=== PATIENT | female | born 1935 | race Caucasian/White ===

== ENCOUNTER 2016-06-23 17:35 | Inpatient (IN) | payer MEDICARE, OTHER ==
[~2016-06-23] VITALS: Ht 165.1 cm; Wt 62.0 kg
--- NOTE | ~2016-06-23 | FD ---
ADMIT: 06/23/2016 RM/LOC: 512 [facility] MR#: [id number] [address] [id number] ELIAS COURTNEY [address] [place] [address] Final Diagnosis SEX: F AGE: 81 : 1935 ADMISSION DATE: 06/23/2016 DISCHARGE DATE: 06/25/2016 ADMITTING DIAGNOSIS: As per history and physical. FINAL DIAGNOSES: 1. Severe abdominal pain, resolved. 2. Ileus, resolved. 3. Dehydration, resolved. 4. Type 2 diabetes. 5. Collagenous colitis. 6. Chronic gastroesophageal reflux disease. 7. Constipation. 8. Hypothyroidism. 9. Generalized osteoarthritis. 10.Restless legs syndrome. 11.Chronic insomnia. COMPLICATIONS: None. OPERATIONS: None. Lenard Lao MD/ sindy JOB #: [id number] CC: Lenard Lao MD, Attending Physician Lenard Lao MD, Family Physician
[2016-06-27] MEDS ORDERED: UCERIS9 MG PO (07:35)
[2016-06-27] MEDS ORDERED: SYNTHROID50 MCG PO (07:35)
[2016-06-27] MEDS ORDERED: XANAX DPS0.25 MG PO (07:36)
[2016-06-27] MEDS ORDERED: REQUIP DPS0.5 MG PO (07:36)
[2016-06-27] MEDS ORDERED: DESYREL DPS100 MG PO (07:36)
[2016-06-27] MEDS ORDERED: MELATONIN10 M2 PO (07:36)
[2016-06-27] MEDS ORDERED: CATAPLEX B PO (07:37)
[2016-06-27] MEDS ORDERED: VITAMIN D-32000 UNI1 PO (07:37)
[2016-06-27] MEDS ORDERED: ZYRTEC DPS10 MG PO (07:37)
[2016-06-27] MEDS ORDERED: TYLENOL DPS325 MG PO (07:38)
[2016-06-27] MEDS ORDERED: MILK OF MAGNESI10 ML PO (07:38)
--- NOTE | 2016-06-28 12:53 | HP ---
ADMIT: 06/23/2016 RM/LOC: 512 [facility] MR#: [id number] [address] [id number] ELIAS COURTNEY [address] [place] [address] History and Physical SEX: F AGE: 81 : 1935 DATE OF SERVICE: CHIEF COMPLAINT: Severe abdominal pain with persistent nausea. CLINICAL HISTORY: The patient is an 81-year-old white female, admitted to [facility] after being seen at our office on the afternoon of 06/23/2016, complaining of severe mid abdominal pain with marked cramping and protracted nausea. She was having no vomiting but was unable to eat or drink because of the nausea. The patient had had the onset of her abdominal pain on Tuesday evening, 06/21/2016. Since that time, her pain had gotten progressively worse. She has been unable to maintain adequate hydration or eat or drink anything. Any oral intake markedly aggravated her abdominal cramping. Over the past 24 hours, she has been unable to eat or drink anything. The patient notes a past history of chronic diarrhea and was recently diagnosed in March of 2016 with collagenous colitis. In the past, she used to have 6-10 stools a day that were watery due to her colitis. Recently, she was started on Uceris 9 mg extended release tablet. She was prescribed this by her economics lecturer, Dr. Monae. Since starting on the Uceris approximately 6 weeks ago, her diarrhea has subsided and she now has usually one or two formed or semi-formed stools per day. However, she notes since the onset of her severe abdominal pain on Tuesday evening, she has had no bowel movement and has noticed that she has not been able to pass any gas either. She does note a prior history of right hemicolectomy for colon cancer. She has had two recent colonoscopies, one by Dr. Syed in January of 2016 and most recently in March of 2016, at which time biopsies confirmed collagenous colitis. When seen at our office, her abdomen was extremely tender. She had abdominal distention and was very tympanic. Bowel sounds were hypoactive. She had some voluntary guarding in both lower quadrants with no true peritoneal signs. She was noted to be significantly dehydrated. Because of her severe abdominal pain, protracted nausea, and subsequent dehydration, it was felt best to admit at this time. PAST MEDICAL HISTORY: Recent hospitalizations; she has had no recent hospitalizations. Her prior colonoscopies were done as an outpatient. As noted, she had one in January of 2016 and most recently in March of 2016. 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 She notes that it has been greater than 10 years and she has had no evidence of recurrent disease. She notes that she did not have to take chemotherapy. She was apparently surgically cured by her right hemicolectomy. Her only other surgical procedure was a tonsillectomy as a young adult and an appendectomy as a young adult. No other surgical procedures. No other recent hospitalizations. CURRENT MEDICATIONS: Include: 1. Xanax 0.25 mg one twice a day. 2. Levothyroxine 50 mcg daily. 3. Requip 0.5 mg, one at bedtime for restless legs syndrome. 4. Uceris ER 9 mg one daily. 5. Trazodone 100 mg, one or two tablets at bedtime for insomnia. ADMIT: 06/23/2016 RM/LOC: 512 [facility] MR#: [id number] [address] [place] [id number] ELIAS COURTNEY [address] [place] [id number] History and Physical SEX: F AGE: 81 : 1935 6. [place] 5/325, one or two tablets at bedtime for chronic arthritic pain. 7. Melatonin 10 mg two tablets at bedtime for insomnia. 8. Vitamin D3, 2000 units twice a week. 9. Cataplex B supplement 2 tablets twice a day. 10.Zyrtec 10 mg once daily for allergies. ALLERGIES: NO KNOWN DRUG ALLERGIES. MEDICAL ILLNESSES: Her medical illnesses include: 1. Chronic gastroesophageal reflux disease. 2. Collagenous colitis. 3. Hypothyroidism. 4. Type 2 diabetes, diet controlled. 5. Past history of colon cancer, status post right hemicolectomy. SOCIAL HISTORY: The patient is . She is retired. She lives with her . She is a lifelong nonsmoker. She does not consume alcoholic beverages. No history of illicit drug use. She is usually able to manage all of her own ADLs and is self-reliant in her usual daily activities. FAMILY HISTORY: She notes her father of lung cancer. Her mother of coronary artery disease and an acute myocardial infarction. There is a history of hypertension, diabetes, and cardiovascular disease on her mother's side of the family. REVIEW OF SYSTEMS: CONSTITUTIONAL: She notes that she has had no fever, no chills. She has been nauseated for the past 2 days, unable to eat or drink any fluids. HEENT: Does complain of chronic headaches, but no upper respiratory congestion, no sinus congestion, no sore throat. She denies any recent vision change. No change in hearing. No significant ENT complaints. CARDIAC: No chest pain. No palpitations. PULMONARY: No shortness of breath. No cough. No respiratory congestion. GASTROINTESTINAL: Unable to eat for the last 2 days. She does have past history of indigestion and heartburn, usually controlled with [id number] antacids. She notes that she never vomits, but she has been extremely nauseated, unable to eat. She is having severe abdominal pain as already mentioned. GENITOURINARY: No voiding symptoms. No flank pain. No history of renal stones or ureteral colic. ENDOCRINE: She is a type 2 diabetic, diet controlled. She does have history of hypothyroidism. MUSCULOSKELETAL: Some generalized arthritic discomfort. NEUROLOGIC: No history of strokes, seizures, or syncopal episodes. No new focal neurologic symptoms. PSYCHIATRIC: She denies anxiety or depression. Does have chronic sleep disturbance. INTEGUMENT: No rashes or worrisome skin lesions. ADMIT: 06/23/2016 RM/LOC: 512 [facility] MR#: [id number] [address] [id number] ELIAS COURTNEY [address] [place] [address] History and Physical SEX: F AGE: 81 : 1935 PHYSICAL EXAMINATION: VITAL SIGNS: Her temp is 98.4, pulse is 58, respirations 16, blood pressure 121/42, O2 saturation 97%. She is 5 feet 5 inches tall, weight is 137 pounds. GENERAL: The patient is an 81-year-old female, who appears her stated age. She is in moderate distress secondary to her severe abdominal pain. She does appear to be moderately dehydrated. HEENT: On ENT exam, her ears are clear. Pupils are equal and reactive. Sclerae nonicteric. Her conjunctiva is noninflamed. Vision and hearing are both grossly intact. Nose and throat are noninflamed. Oropharynx has dry mucous membranes. NECK: Supple. No cervical adenopathy. No neck vein distention. No neck masses. LUNGS: Today are noted to be clear throughout. No dullness to percussion. HEART: Regular rhythm. No murmurs. No evidence of failure. ABDOMEN: Somewhat protuberant, mildly distended. She does have a scar on her abdomen in the right mid abdomen from previous colon resection. She also has a scar in her right lower quadrant from previous appendectomy. Bowel sounds are noted to be hypoactive. Her abdomen is protuberant and quite tympanic. She has severe pain through the mid abdomen. She has voluntary guarding but no true rebound. No abdominal bruits. She has no CVA tenderness. Mild suprapubic tenderness noted. EXTREMITIES: Today have no edema. No clubbing or cyanosis. Full range of motion and mobility. INTEGUMENT: No rashes or areas of skin breakdown. NEUROLOGIC: She is intact with no focal deficits. Her balance today is poor due to generalized weakness. Once again, I can appreciate no focal deficit, just generalized weakness. LABORATORY DATA: Her admission laboratory work included a CBC, which showed a white count of 9300, hemoglobin 11.6, hematocrit 35.7. Electrolytes were normal. Sodium 141, potassium 4.1, BUN was 11, creatinine 0.8. Her liver function studies were normal. Normal AST and ALT. Amylase is normal at 27. Lipase is normal at 82. Total bilirubin is 0.6. Procalcitonin is normal at less than 0.05. Lactic acid is normal at 1.1. Her urinalysis is clear. A CT of her abdomen and pelvis on admission showed no evidence of small bowel obstruction. There was some pericholecystic fluid around the gallbladder fossa with some questionable thickening of the gallbladder wall. There was some mild prominence at the head of the pancreas. ASSESSMENT AT THE TIME OF ADMISSION: 1. Severe persistent abdominal pain. 2. Ileus versus partial small bowel obstruction. 3. Protracted nausea. 4. Moderate dehydration. 5. Collagenous colitis. 6. Remote past history of colon cancer, status post right hemicolectomy. No evidence of recurrent disease at this time. ADMIT: 06/23/2016 RM/LOC: 512 [facility] MR#: [id number] [address] [place] [phone] ELIAS COURTNEY [address] [place] [address] History and Physical SEX: F AGE: 81 : 1935 7. Hypothyroidism. 8. Restless legs syndrome. 9. Chronic sleep disturbance. 10.Type 2 diabetes, diet controlled. PLAN: Plan is to admit the patient. We will rehydrate with IV fluids. We will proceed with ultrasound of her abdomen to rule out acute cholecystitis or other gallbladder issues. We will repeat lab studies in the a.m. We will control her pain with IV morphine. We will use IV Zofran to control her nausea. I suspect that this may be just an ileus related to her current constipation. Need to proceed with further evaluation to rule out other intraabdominal pathologies. Lenard Lao MD/ sindy JOB #: [id number] CC: Lenard Lao MD, Attending Physician Lenard Lao MD, Family Physician
== END 2016-06-25 10:15 | disposition home or self-care (01) | DRG 390 ==
LOC: 5MS 17:35
PROVIDERS: ADMIT Family Medicine
DX: K56.7 Ileus, unspecified (principal); E86.0 Dehydration; E11.9 Type 2 diabetes mellitus without complications; K52.831 Collagenous colitis; K21.9 Gastro-esophageal reflux disease without esophagitis; K59.00 Constipation, unspecified; E03.9 Hypothyroidism, unspecified; M19.90 Unspecified osteoarthritis, unspecified site; G25.81 Restless legs syndrome; G47.9 Sleep disorder, unspecified; Z85.038 Personal history of other malignant neoplasm of large intestine; Z82.49 Family history of ischemic heart disease and other diseases of the circulatory system